=== PATIENT | male | born 1935 | race Caucasian/White ===

== ENCOUNTER 2016-10-30 09:22 | Observation (INO) ==
[2016-10-30] MEDS ORDERED: ASPIRIN PO STA (09:30)
--- NOTE | 2016-10-30 09:36 | EKG Report ---
Test Performed on : 10/30/2016 09:29:51 AM Test Reason : CP Blood Pressure : / mmHG Vent. Rate : 055 BPM Atrial Rate : 055 BPM P-R Int : 150 ms QRS Dur : 108 ms QT Int : 444 ms P-R-T Axes : 040 -43 044 degrees QTc Int : 424 ms Sinus bradycardia. Possible Left atrial enlargement Left axis deviation Cannot rule out Anterior infarct , age undetermined Abnormal ECG No previous ECGs available Unconfirmed Result
[2016-10-30 09:44] LABS: MANUAL DIFF NEEDED? NO
[2016-10-30] MEDS ORDERED: NITROGLYCERIN TOP ONE (09:46)
[2016-10-30] MEDS ORDERED: APRESOLINE IV ONE (09:47)
[2016-10-30 09:51] LABS: BASO% 0.2 % (0.0-0.8); EOS# 0.12 X1000 (0.0-0.7); EOS% 2.3 % (0.0-10.0); HEMOGLOBIN 14.7 g/dL (14.0-18.0); IMM GRAN# 0.01 X1000 (0.0-0.04); IMM GRAN% 0.2 % (0.0-0.5); LYMPH# 1.22 X1000 (1.2-3.4); LYMPH% 23.3 % (20.5-51.1); MCH 30.4 PG (27-31); MCHC 34.2 g/dL (33-37); MCV 88.8 FL (81-99); MONO# 0.57 X1000 (0.11-0.59); MONO% 10.9 % (1.7-9.3); MPV 10.4 FL (7.4-10.4); NEUT% 63.1 % (42.2-75.2); PLT 156 X1000 (130-400); RBC 4.84 XMIL (4.7-6.1)
[2016-10-30 10:02] LABS: ALBUMIN 4.1 g/dL (3.5-5.0); CALCIUM 10.1 mg/dL (8.8-10.2); MAGNESIUM 2.2 mg/dL (1.5-2.7); POTASSIUM 4.2 mmol/L (3.5-5.1); TOTAL BILIRUBIN 0.7 mg/dL (0.20-1.00); TOTAL PROTEIN 7.1 g/dL (6.3-8.3)
--- NOTE | 2016-10-30 10:06 | Diag Imaging Result Doc PS360 ---
CHEST-2 VIEWS - 10/30/2016 INDICATION: CP TECHNIQUE: COMPARISON: None FINDINGS: Lung volumes are low with some strandy atelectasis at the diaphragms bilaterally. Small granuloma is present in the left upper lobe. No suspicious infiltrates or nodules. Heart size and pulmonary vascularity is normal. IMPRESSION: No specific acute disease. Electronically signed by Orlin Smith 10/30/2016 10:03 AM
[2016-10-30 10:08] LABS: INR 0.93 (0.86-1.15); PROTIME 12.8 Seconds (12.1-15.5)
[2016-10-30 10:09] LABS: PTT PL 32.4 Seconds (22.6-43.9)
--- NOTE | 2016-10-30 12:02 | EKG Report ---
Test Performed on : 10/30/2016 11:55:30 AM Test Reason : repeat Blood Pressure : / mmHG Vent. Rate : 047 BPM Atrial Rate : 047 BPM P-R Int : 160 ms QRS Dur : 110 ms QT Int : 492 ms P-R-T Axes : 045 -45 035 degrees QTc Int : 435 ms Sinus bradycardia. Left anterior fascicular block Abnormal ECG When compared with ECG of 30-OCT-2016 09:29, (Unconfirmed) No significant change was found Unconfirmed Result
[2016-10-30] MEDS ORDERED: NS 1,000 ML IV ONE (13:11)
[2016-10-30] MEDS: NS 1,000 ML IV SCH (14:27)
[2016-10-30] MEDS ORDERED: PERCOCET-5 PO PRN (14:30)
--- NOTE | 2016-10-30 18:49 | HISTORY AND PHYSICAL ---
PRIMARY CARE PHYSICIAN: Dr. Santacruz. CHIEF COMPLAINT: Left-sided chest pain that began this morning. HISTORY OF PRESENTING ILLNESS: This is an 81-year-old male who presented to [facility] ER with complaints of left-sided chest pain that began this a.m. He described the chest pain as sharp, stabbing, and intermittent. Denied any nausea or diaphoresis. States he did feel weak. When he arrived to the emergency room he was noted to have a blood pressure of 204/98 with a pulse of 57. Workup in the ER showed 2 sets of cardiac enzymes were negative. ProBNP of 543. He did have an elevation in his D-dimer at 0.68. His chest x-ray showed no specific acute disease but he was admitted for further evaluation and treatment. PAST MEDICAL HISTORY: Hypertension and hyperlipidemia. PAST SURGICAL HISTORY: Heart stent x2. FAMILY HISTORY: Noncontributory. SOCIAL HISTORY: Currently lives alone. Denies any tobacco, alcohol, or illicit drug use. ALLERGIES: He has no known drug allergies. HOME MEDICATIONS: He takes aspirin 325 mg p.o. daily, Plavix 75 mg p.o. daily, metoprolol 50 mg p.o. daily, oxycodone 5 one p.o. q.8 hours p.r.n., MiraLAX 255 g p.o. daily, Pravachol 80 mg p.o. daily, ramipril 5 mg p.o. daily, tamsulosin 0.4 mg p.o. at bedtime and ursodiol 300 mg p.o. daily. LABORATORY DATA: Showed a white blood cell count of 5.23, hemoglobin of 14.7, hematocrit 43, platelets 156,000. PT and INR of 12.8 and 0.93 with a D-dimer of 0.68. Sodium 139, potassium 4.2, chloride 105, CO2 25, BUN of 16 with a creatinine of 1.2, glucose 109, magnesium of 2.2. Cardiac enzymes x2 sets were negative. ProBNP of 543. Chest x-ray showed no acute disease. EKG with sinus bradycardia at 47. REVIEW OF SYSTEMS: He denied any fever, chills, blurred vision, dizziness. He was positive for left-sided chest pain that was sharp and stabbing and intermittent, generalized weakness. Denied any coughing or shortness of breath. Denied any abdominal pain, constipation, diarrhea, burning or hurting with urination. PHYSICAL EXAMINATION: VITAL SIGNS: On arrival, he had a temperature of 97.9 degrees, pulse 57, respirations 22, blood pressure was 204/98, saturating 98% on room air. GENERAL: This is an 81-year-old male, who is lying in the bed and answers questions appropriately. HEENT: Normocephalic and atraumatic. Pupils are equal, round, reactive to light. Extraocular movements are intact. Oropharynx and nares are clear. NECK: Supple. LUNGS: Clear to auscultation bilaterally with equal lung expansion and chest wall movement. HEART: With regular rate and rhythm. No murmurs, rubs, or gallops. ABDOMEN: Soft, nontender, nondistended. Bowel sounds are present x4 quadrants. EXTREMITIES: There is no clubbing, cyanosis, or edema. NEUROLOGICAL: The cranial nerves 2 through 12 appear grossly intact. ASSESSMENT: 1. Chest pain. 2. Accelerated hypertension. 3. Hyperlipidemia. PLAN: He has been admitted to the medical unit at [place]. Placed on telemetry. Healthy heart diet. We will check a CBC, CMP, lipid profile, magnesium, and TSH level in the a.m. Place him on normal saline at 75 mL an hour. He received hydralazine 10 mg IV x1 and nitroglycerin ointment 1 inch topically. Will continue his home medications. We will recheck the last set of cardiac enzymes and follow. The patient is a full code. Dictated by FRENCH Sheehan for Wilbert Holley MD cc: FRENCH Sheehan MD [facility] H. Cash
[2016-10-30] MEDS ORDERED: PRAVACHOL PO SCH (21:00)
[2016-10-30] MEDS ORDERED: FLOMAX PO SCH (21:00)
[2016-10-31] MEDS: NS 1,000 ML IV SCH (03:16)
[2016-10-31 05:51] LABS: HEMATOCRIT 40.8 % (42.0-52.0); HEMOGLOBIN 13.6 g/dL (14.0-18.0); MCH 29.9 PG (27-31); MCHC 33.3 g/dL (33-37); MCV 89.7 FL (81-99); MPV 10.8 FL (7.4-10.4); RBC 4.55 XMIL (4.7-6.1)
[2016-10-31 06:18] LABS: AGAP 6; ALBUMIN 3.4 g/dL (3.5-5.0); ALKALINE PHOSPHATASE 89 U/L (32-122); BUN 14 mg/dL (8-22); CALCIUM 9.1 mg/dL (8.8-10.2); CHLORIDE 111 mmol/L (98-107); COSMO 281; GOT 16 U/L (10-34); GPT 10 U/L (10-44); HDL 33 mg/dL (35-55); LDL 84 mg/dL; MAGNESIUM 2.2 mg/dL (1.5-2.7); SODIUM 141 mmol/L (136-145); TCO2 24 mmol/L (25-35); TOTAL PROTEIN 5.9 g/dL (6.3-8.3); TRIGLYCERIDES 125 mg/dL (39-160); VLDL 25 mg/dL
--- NOTE | 2016-10-31 07:40 | Diag Imaging Result Doc PS360 ---
EXAM: ANGIOGRAM/PULMONARY ARTERIES - 10/31/2016 HISTORY: d dimer TECHNIQUE: With intravenous contrast. Axial and reformatted coronal MIP images. Dose reduction protocol. COMPARISON: None. FINDINGS: There are no filling defects identified in the pulmonary arteries. There are mild emphysematous changes. There are a few calcified granulomas from old granulomatous disease. There are some calcified pleural plaques, most prominent over the left lower lobe. There is subsegmental atelectasis and/or scarring at the left lower lobe. There is no dense consolidation, pleural effusion, or pneumothorax identified. There are nonspecific small mediastinal lymph nodes. Included sections of upper abdomen show some small calcified gallstones in the gallbladder. There are nonobstructing stones in the visualized bilateral kidneys. There is a 2.6 cm cyst at the upper left kidney. IMPRESSION: No evidence of pulmonary embolism. Mild emphysematous changes. Old granulomatous disease. Calcified pleural plaques. Subsegmental atelectasis and/or scarring at left lower lobe. No discrete pneumonia. Nonspecific small mediastinal lymph nodes. Small gallstones in gallbladder. Nonobstructing stones in the visualized bilateral kidneys. Electronically signed by Enrrique Pritchard 10/31/2016 7:38 AM
[2016-10-31] MEDS: ACTIGALL PO SCH ×2 (08:25→08:28)
[2016-10-31] MEDS ORDERED: ALTACE PO SCH ×2 (09:00)
[2016-10-31] MEDS ORDERED: ASPIRIN PO SCH (09:00)
[2016-10-31] MEDS ORDERED: MIRALAX PO SCH (09:00)
[2016-10-31] MEDS ORDERED: LOPRESSOR PO SCH ×2 (09:00)
[2016-10-31] MEDS ORDERED: PLAVIX PO SCH (09:00)
--- NOTE | 2016-10-31 13:32 | Extremity Venous Study ---
EXAM: Venous U/S Bilateral Legs HISTORY: d dimer TECHNIQUE: Compression venous ultrasound of the lower extremities with color Doppler COMMENT: The deep veins of the lower extremity are compressible and demonstrate normal color Doppler flow with augmentation. No abnormal fluid collections are present. There is no evidence of superficial venous thrombosis. IMPRESSION: Normal study. Electronically signed by Terrence Fontaine 10/31/2016 1:30 PM
[2016-10-31 15:44] VITALS: BP 161/63
--- NOTE | 2016-10-31 18:33 | CONSULTATION ---
DATE OF CONSULTATION: 10/31/2016 IMPRESSION: 1. Episodic chest discomfort very atypical for myocardial ischemia characterized as a sharp sticking chest pain in the left chest, is fleeting in nature and nonexertional. No objective evidence of ischemia on ECG. Serial cardiac enzymes negative. CT angiography also negative for evidence of pulmonary embolus. 2. Atherosclerotic coronary disease. Patient is status post previous Angioplasty/stenting of left circumflex coronary artery. He is also status post myocardial infarction and subsequent angioplasty/stenting of proximal left anterior descending coronary artery in 2011. Ischemic cardiomyopathy with left ejection fraction 35% in 2011 improved with left ejection fraction 40% in 2013. No recurrence of angina equivalent which patient relates is a bilateral arm discomfort. 3. Hypertension. 4. Hyperlipidemia. RECOMMENDATIONS: 1. Increase Altace in light of patient's elevated blood pressure. 2. Reasonable for patient to be discharged to follow up with his regular powdered sugar supervisor, Dr. Santacruz. Chest symptoms highly atypical for myocardial ischemia and most likely noncardiac. HISTORY: This 81-year-old white male with past history of atherosclerotic coronary disease as outlined above, hypertension, hyperlipidemia and gastroesophageal reflux was admitted through the emergency room yesterday morning for evaluation of chest pain. Describes fleeting sharp left anterior "sticking" chest discomfort. Discomfort recurred intermittently. However there is no sustained discomfort. He came to the emergency room for evaluation and has been admitted. ECG was benign. He had a CT angio which was negative for pulmonary embolus. Venous Doppler was also negative for DVT. Serial cardiac enzymes have been negative. He has not any further chest symptoms. Chest discomfort is not like what he experienced with his coronary disease in the past. He describes his previous coronary symptoms as a bilateral arm discomfort which has not recurred since his last angioplasty/stent procedure. PAST MEDICAL HISTORY: 1. Atherosclerotic coronary disease as outlined above. 2. Hypertension. 3. Hyperlipidemia. 4. Gastroesophageal reflux. ALLERGIES: He has no known drug allergies. MEDICATIONS: Prior to admission as listed. SOCIAL HISTORY: He does not smoke or use alcohol. FAMILY HISTORY: Negative for premature coronary disease. REVIEW OF SYSTEMS: Pulmonary: Negative. Gastrointestinal: Negative. Constitutional: Negative. Remainder review of systems negative/noncontributory with 14 total systems reviewed. PHYSICAL EXAMINATION: General: This is a pleasant, elderly male in no distress. Vital signs: Blood pressure 180/72, heart rate 57 and regular. HEENT: Extraocular movements appear intact. Mucous membranes moist. Neck: Supple without jugular venous distention. There are no carotid bruits. Chest: Clear to auscultation. Cardiac Exam: Reveals a regular rate and rhythm without appreciable murmur or gallop. Abdomen: Soft, nontender. Bowel sounds are normal. Extremities: Without edema. Neurologic Exam: Reveals him to be alert and fully oriented. Speech is fluent. Moves all 4 extremities equally well. Skin: Warm and dry. Psychiatric: Reveals mood to be appropriate. DIAGNOSTIC DATA: ECG demonstrates sinus bradycardia, left axis deviation and abnormal precordial R-wave progression, cannot exclude previous anterior infarct of undetermined age. LABORATORY DATA: Remarkable for initial troponin normal and followup troponin normal. cc: Kyle Fernandez MD
--- NOTE | 2016-11-02 16:17 | DISCHARGE SUMMARY ---
ADMISSION DATE: 10/30/2016 DISCHARGE DATE: 10/31/2016 DIAGNOSES: 1. Chest pain. 2. Arteriosclerotic coronary disease status post angioplasty and stenting. 3. Ischemic cardiomyopathy with EF of 35% in 2011. 4. Hypertension. 5. Hyperlipidemia. 6. Bradycardia. CONSULTS: Dr. Kyle Fernandez, Cardiology. DIAGNOSTICS: 1. On 10/30/2016 chest x-ray revealed no specific acute disease. 2. On 10/31/2016 bilateral lower extremity Doppler revealed a normal study. No evidence of superficial venous thrombosis. 3. Pulmonary arteriogram revealed no evidence of pulmonary embolism. Mild emphysematous changes. Small gallstones in the gallbladder. Nonobstructing kidney stones bilateral. 4. Electrocardiogram. Sinus bradycardia with a left axis deviation. Abnormal precordial R-wave progression. Anterior infarct of undetermined age cannot be excluded. LABS: 1. D-dimer is 0.68. 2. Troponins are negative on multiple occasions. HOSPITAL COURSE: Mr. Ortega was admitted through the emergency room for evaluation of left anterior chest pain that he described as a sharp, sticking sensation that had a sudden onset and it did resolve spontaneously, having a 2nd episode shortly after. He then presented to the emergency room. He was found to have negative troponins. EKG as stated above. He did have an elevated D-dimer. CTA pulmonary as well as bilateral lower extremity Doppler were negative for DVT or pulmonary embolus. He was evaluated by cardiology who felt that his chest discomfort was atypical for myocardial ischemia, being sharp, sticking pain that was fleeting and nonexertional. Serial cardiac enzymes were negative. No objective evidence of ischemia on his EKG. He was noted to be hypertensive. His Altace was increased per cardiology, to follow up with Dr. Santacruz, his regular manufacturing mechanic. PHYSICAL EXAMINATION: Cardiovascular: Regular rate and rhythm. S1 and S2 appreciated. Pulmonary: Breath sounds are clear. No increased work of breathing noted. Gastrointestinal: Abdomen is soft, nontender, nondistended with bowel sounds in all 4 quadrants. Extremities: No clubbing, cyanosis, or edema. Calves nontender. Pulses palpable x4. Neurologic: He is alert and oriented x3. DISCHARGE MEDICATIONS: 1. Oxycodone acetaminophen 5/325 one q.8 hours p.r.n. 2. MiraLAX 1 packet daily. 3. Aspirin 325 daily. 4. Pravachol 80 daily. 5. Ursodiol 300 mg daily. 6. Plavix 75 mg daily. 7. Altace 10 mg daily. 8. Tamsulosin 1 daily. DISCHARGE FOLLOWUP: He needs to follow up with Dr. Santacruz, his regular manufacturing mechanic, in the next 1- 2 weeks. He is to call in the morning to schedule an appointment, as well as update on hospitalization. He is being discharged home in stable condition with family members. As the patient has been bradycardic we did hold his Lopressor. Heart rates were initially 48-49. They did increase to the high 50s, being 57-59. On discharge he was instructed to hold his Lopressor until he was evaluated by Dr. Santacruz and restart per Dr. Santacruz's recommendations. Dictated by FRENCH Louie for Wilbert Holley MD cc: FRENCH Louie MD
== END 2016-10-31 19:10 | disposition home or self-care (01) ==
LOC: P.ED 09:22 → P.MEDSURG 09:22
PROVIDERS: ATTEND Family Medicine